=== PATIENT | male | born 1965 | race American Indian/Alaskan Native ===

== ENCOUNTER 2018-08-01 18:49 | Inpatient (IN) | payer OTHER ==
[2018-08-01] MEDS ORDERED: ASPIRIN PO ONE (19:12)
[2018-08-01 21:14] LABS: Basophils % (Auto) 0.3 % (0.0-1.8); Eosinophils # (Auto) 0.2 K/mm3 (0.0-0.4); Eosinophils % (Auto) 1.3 % (0.0-4.3); Hematocrit 41.3 % (35.5-45.6); Hemoglobin 13.3 gm/dl (11.8-15.2); Lymphocytes # (Auto) 0.9 K/mm3 (1.2-5.4); Lymphocytes % (Auto) 7.8 % (13.4-35.0); Mean Corpuscular HGB Conc 32 % (32-34); Mean Corpuscular Volume 83 fl (84-94); Monocytes # (Auto) 1.3 K/mm3 (0.0-0.8); Monocytes % (Auto) 11.1 % (0.0-7.3); Platelet Count 263 K/mm3 (140-440); Red Blood Count 4.99 M/mm3 (3.65-5.03); Red Cell Distribution Width 14.2 % (13.2-15.2)
[2018-08-01 21:32] LABS: BUN/Creatinine Ratio 10; Blood Urea Nitrogen 9 mg/dL (9-20); Calcium 9.1 mg/dL (8.4-10.2); Hemolysis Index 0
[2018-08-02] MEDS ORDERED: ATROVENT IH ONE (02:46)
[2018-08-02] MEDS ORDERED: PROVENTIL IH ONE (02:46)
--- NOTE | 2018-08-02 02:52 | Emergency Department Report ---
HPI - General Chief Complaint: Chest Pain Time Seen by Provider: 08/02/18 02:39 - HPI HPI: Room 6 The patient is a 53-year-old male presenting with chief complaint chest pain and shortness of breath. The patient states this evening he developed left-sided chest pain sharp in nature associated with shortness of breath, nausea/vomiting and diaphoresis. Patient admitted to a cough yesterday productive of yellow sputum but denies a cough currently. The patient states his pain has been constant. Patient states he's never had a stress test or cardiac catheterization Location: [See above] Duration: [See above] Quality: Sharp Severity: Currently 0/10 Modifying factors: [see above] Context: [see above] Mode of transportation: [not driving] ED Past Medical Hx - Past Medical History Additional medical history: denies - Surgical History Past Surgical History?: No Additional Surgical History: BL wrist, pelvis, skull - Family History Family history: no significant - Social History Smoking Status: Current Every Day Smoker (1 pack per day) Substance Use Type: None (denies illicit drug use) - Medications Home Medications: Home Medications Medication Instructions Recorded Confirmed Last Taken Type No Known Home Medications [No 08/02/18 08/02/18 Unknown History Reported Home Medications] ED Review of Systems ROS: Stated complaint: CHEST PAIN Other details as noted in HPI Constitutional: diaphoresis Eyes: denies: eye pain ENT: denies: throat pain Respiratory: cough, shortness of breath Cardiovascular: chest pain Endocrine: no symptoms reported Gastrointestinal: nausea, vomiting Genitourinary: denies: dysuria Musculoskeletal: denies: back pain Neurological: denies: headache Physical Exam - Physical Exam Vital Signs: Vital Signs 08/01/18 08/02/18 19:12 01:58 Temperature 98.2 F 98.5 F Pulse Rate 94 H 77 Respiratory 24 18 Rate Blood Pressure 145/85 112/68 [Left] O2 Sat by Pulse 90 95 Oximetry Physical Exam: GENERAL: The patient is well-developed well-nourished male sleeping on stretcher not appearing to be in acute distress. Patient awakens easily HEENT: Normocephalic. Atraumatic. Extraocular motions are intact. Patient has moist mucous membranes. NECK: Supple. Trachea midline CHEST/LUNGS: Diminished bilaterally with occasional faint end expiratory wheezing on the left. There is no respiratory distress noted. HEART/CARDIOVASCULAR: Regular. There is no tachycardia. There is no gallop rub or murmur. ABDOMEN: Abdomen is soft, nontender. Patient has normal bowel sounds. There is no abdominal distention. SKIN: There is no rash. There is no edema. There is no diaphoresis. NEURO: The patient is awake, alert, and oriented. The patient is cooperative. The patient has normal speech MUSCULOSKELETAL: There is no evidence of acute injury. ED Course Vital Signs 08/01/18 08/02/18 19:12 01:58 Temperature 98.2 F 98.5 F Pulse Rate 94 H 77 Respiratory 24 18 Rate Blood Pressure 145/85 112/68 [Left] O2 Sat by Pulse 90 95 Oximetry ED Medical Decision Making - Lab Data Result diagrams: 08/01/18 20:42 08/01/18 20:42 Laboratory Tests 08/01/18 08/01/18 08/01/18 20:42 20:42 20:42 WBC 11.7 H RBC 4.99 Hgb 13.3 Hct 41.3 MCV 83 L MCH 27 L MCHC 32 RDW 14.2 Plt Count 263 Lymph % (Auto) 7.8 L [place] % (Auto) 11.1 H Eos % (Auto) 1.3 Baso % (Auto) 0.3 Lymph # 0.9 L [place] # 1.3 H Eos # 0.2 Baso # 0.0 Seg Neutrophils % 79.5 H Seg Neutrophils # 9.3 H D-Dimer POC ABG pH POC ABG pCO2 POC ABG pO2 POC ABG HCO3 POC ABG Total CO2 POC ABG O2 Sat POC ABG Base Excess FiO2 Sodium 148 H Potassium 4.1 Chloride 101.1 Carbon Dioxide 29 Anion Gap 22 BUN 9 Creatinine 0.9 Estimated GFR > 60 BUN/Creatinine Ratio 10 Glucose 110 H Calcium 9.1 Troponin T < 0.010 NT-Pro-B Natriuret Pep 95.78 08/02/18 08/02/18 08/02/18 01:00 03:16 04:05 WBC RBC Hgb Hct MCV MCH MCHC RDW Plt Count Lymph % (Auto) [place] % (Auto) Eos % (Auto) Baso % (Auto) Lymph # [place] # Eos # Baso # Seg Neutrophils % Seg Neutrophils # D-Dimer 186.22 POC ABG pH 7.379 POC ABG pCO2 47.1 H POC ABG pO2 50 L POC ABG HCO3 27.8 POC ABG Total CO2 29 POC ABG O2 Sat 84 POC ABG Base Excess 3 FiO2 21 Sodium Potassium Chloride Carbon Dioxide Anion Gap BUN Creatinine Estimated GFR BUN/Creatinine Ratio Glucose Calcium Troponin T < 0.010 NT-Pro-B Natriuret Pep - EKG Data -: EKG Interpreted by Me EKG shows normal: sinus rhythm Rate: normal - EKG Data When compared to previous EKG there are: previous EKG unavailable Interpretation: nonspecific ST-T wave gabino (T-wave inversion in lead aVL) - Radiology Data Radiology results: report reviewed (chest x-ray), image reviewed (chest x-ray) [facility] [address] [place] [address] XRay Report Signed Patient: PETER RILEY MR#: [id number] : 1965 Acct:[id number] Age/Sex: 53 / M ADM Date: 08/01/18 Loc: ED Attending Dr: Ordering Physician: REGIS VASQUEZ MD Date of Service: 08/02/18 Procedure(s): XR chest 1V ap Accession Number(s): [id number] cc: REGIS VASQUEZ MD Fluoro Time In Minutes: PROCEDURE: XR CHEST 1V AP TECHNIQUE: A portable upright view the chest was obtained. HISTORY: chest pain COMPARISONS: None FINDINGS: The heart size and vascularity appear normal. The lungs are clear. Pleural fluid is not seen. The bones and soft tissues do not show any acute changes. IMPRESSION: No acute cardiopulmonary process.. This document is electronically signed by Rojelio Taveras MD., August 02 2018 03:36:29 AM ET Transcribed By: RB Dictated By: ROJELIO TAVERAS MD Electronically Authenticated By: ROJELIO TAVERAS MD Signed Date/Time: 08/02/18337 DD/ 1 TD/TT: 08/02/18331 - Differential Diagnosis pneumonia, ACS, PE, COPD Critical care attestation.: If time is entered above; I have spent that time in minutes in the direct care of this critically ill patient, excluding procedure time. ED Disposition Clinical Impression: Hypoxia, Chest pain Disposition: OP ADMIT IP TO THIS HOSP Is pt being admited?: Yes Does the pt Need Aspirin: Yes Condition: Fair Instructions: Chest Pain (ED) [facility]Primary Care Provider[facility] - 3-5 Days Time of Disposition: 05:11 (hospitalist paged (Dr Liao))
[2018-08-02] MEDS ORDERED: ASPIRIN ONE (02:58)
--- NOTE | 2018-08-02 03:38 | XRay Report ---
PROCEDURE: XR CHEST 1V AP TECHNIQUE: A portable upright view the chest was obtained. HISTORY: chest pain COMPARISONS: None FINDINGS: The heart size and vascularity appear normal. The lungs are clear. Pleural fluid is not seen. The bon es and soft tissues do not show any acute changes. IMPRESSION: No acute cardiopulmonary process.. This document is electronically signed by Cornelio Taveras MD., August 02 2018 03:36:29 AM ET
[2018-08-02] MEDS ORDERED: SOLU-Medrol IV ONE (05:06)
[2018-08-02] MEDS ORDERED: TYLENOL PO PRN (05:45)
[2018-08-02] MEDS ORDERED: ZOFRAN IV PRN (05:45)
[2018-08-02] MEDS ORDERED: SODIUM CHLORIDE FLUSH SYRINGE 10 ML IV PRN (05:45)
[2018-08-02] MEDS ORDERED: MORPHINE IV PRN (05:45)
--- NOTE | 2018-08-02 05:49 | History and Physical Report ---
History of Present Illness Date of examination: 08/02/18 Date of admission: 08/02/2018 Chief complaint: Chest pain History of present illness: Patient is a 53-year-old -[place] male in no known past medical history who presented to the ED on account of 1 week history of left-sided chest pain. He described it as sharp in character, nonradiating and rated 9/10. The pain waxes and wanes. No known aggravating or relieving factors. He has associated diaphoresis, shortness of breath, sore throats, runny nose. He denies palpitations, leg swelling, cough, fever, chills, orthopnea or PND. No headaches, nausea, vomiting, lightheadedness, syncope or loss of consciousness. No abdominal pain, constipation, diarrhea, dysuria or frequency. Past History Past Medical History: No medical history Past Surgical History: Other (pelvic surgery) Social history: smoking (patient has 45 years history of cigarette smoking. He currently smokes 1 pack per day), other (he denies alcohol or illicit drug use) Family history: other (reviewed and noncontributory) Medications and Allergies Allergies Allergy/AdvReac Type Severity Reaction Status Date / Time No Known Allergies Allergy Verified 08/02/18 02:45 Home Medications Medication Instructions Recorded Confirmed Last Taken Type No Known Home Medications [No 08/02/18 08/02/18 Unknown History Reported Home Medications] Review of Systems All systems: negative (except as documented in the HPI, all other systems were reviewed and negative) Exam - Constitutional Vitals: Temp Pulse Resp BP Pulse Ox 98.5 F 73 17 105/70 93 08/02/18 01:58 08/02/18 05:00 08/02/18 05:00 08/02/18 05:00 08/02/18 05:00 General appearance: Present: no acute distress, obese - EENT Eyes: Present: PERRL, EOM intact ENT: hearing intact, clear oral mucosa - Neck Neck: Present: supple, normal ROM - Respiratory Respiratory effort: normal Respiratory: bilateral: CTA, diminished - Cardiovascular Rhythm: regular Heart Sounds: Present: S1 & S2. Absent: rub, click - Extremities Extremities: No edema Peripheral Pulses: within normal limits - Abdominal General gastrointestinal: Present: soft, non-tender, non-distended, normal bowel sounds Male genitourinary: Present: deferred - Integumentary Integumentary: Present: clear, warm, dry - Musculoskeletal Musculoskeletal: gait normal, strength equal bilaterally - Psychiatric Psychiatric: appropriate mood/affect, intact judgment & insight - Neurologic Neurologic: CNII-XII intact, moves all extremities Results - Labs CBC & Chem 7: 08/01/18 20:42 08/01/18 20:42 Labs: Laboratory Last Values WBC 11.7 K/mm3 (4.5-11.0) H 08/01/18 20:42 RBC 4.99 M/mm3 (3.65-5.03) 08/01/18 20:42 Hgb 13.3 gm/dl (11.8-15.2) 08/01/18 20:42 Hct 41.3 % (35.5-45.6) 08/01/18 20:42 MCV 83 fl (84-94) L 08/01/18 20:42 MCH 27 pg (28-32) L 08/01/18 20:42 MCHC 32 % (32-34) 08/01/18 20:42 RDW 14.2 % (13.2-15.2) 08/01/18 20:42 Plt Count 263 K/mm3 (140-440) 08/01/18 20:42 Lymph % (Auto) 7.8 % (13.4-35.0) L 08/01/18 20:42 [place] % (Auto) 11.1 % (0.0-7.3) H 08/01/18 20:42 Eos % (Auto) 1.3 % (0.0-4.3) 08/01/18 20:42 Baso % (Auto) 0.3 % (0.0-1.8) 08/01/18 20:42 Lymph # 0.9 K/mm3 (1.2-5.4) L 08/01/18 20:42 [place] # 1.3 K/mm3 (0.0-0.8) H 08/01/18 20:42 Eos # 0.2 K/mm3 (0.0-0.4) 08/01/18 20:42 Baso # 0.0 K/mm3 (0.0-0.1) 08/01/18 20:42 Seg Neutrophils % 79.5 % (40.0-70.0) H 08/01/18 20:42 Seg Neutrophils # 9.3 K/mm3 (1.8-7.7) H 08/01/18 20:42 D-Dimer 186.22 ng/mlDDU (0-234) 08/02/18 04:05 POC ABG pH 7.379 (7.35-7.45) 08/02/18 03:16 POC ABG pCO2 47.1 (35-45) H 08/02/18 03:16 POC ABG pO2 50 (80-105) L 08/02/18 03:16 POC ABG HCO3 27.8 (22-26 mml/L) 08/02/18 03:16 POC ABG Total CO2 29 (23-27mmol/L) 08/02/18 03:16 POC ABG O2 Sat 84 08/02/18 03:16 POC ABG Base Excess 3 ((-2) - (+3)mmol/L) 08/02/18 03:16 FiO2 21 % 08/02/18 03:16 Sodium 148 mmol/L (137-145) H 08/01/18 20:42 Potassium 4.1 mmol/L (3.6-5.0) 08/01/18 20:42 Chloride 101.1 mmol/L (98-107) 08/01/18 20:42 Carbon Dioxide 29 mmol/L (22-30) 08/01/18 20:42 Anion Gap 22 mmol/L 08/01/18 20:42 BUN 9 mg/dL (9-20) 08/01/18 20:42 Creatinine 0.9 mg/dL (0.8-1.5) 08/01/18 20:42 Estimated GFR > 60 ml/min 08/01/18 20:42 BUN/Creatinine Ratio 10 % 08/01/18 20:42 Glucose 110 mg/dL (75-100) H 08/01/18 20:42 Calcium 9.1 mg/dL (8.4-10.2) 08/01/18 20:42 Troponin T < 0.010 ng/mL (0.00-0.029) 08/02/18 01:00 NT-Pro-B Natriuret Pep 95.78 pg/mL (0-900) 08/01/18 20:42 Assessment and Plan Assessment and plan: Chest pain, rule out ACS -Chest pain pathway -Nuclear stress test and echocardiogram for further evaluation Acute respiratory failure with hypoxia -Probably secondary to undiagnosed COPD due to his history of tobacco abuse -Continue oxygen supplementation as needed and nebulizer breathing treatments -D-dimer negative. SIRS -Probably secondary to noninfectious cause -Urinalysis pending, chest x-ray negative Hypernatremia -probably secondary to volume depletion -On IV half-normal saline, will monitor sodium level Hyperglycemia -Hba1c level pending Tobacco abuse -Patient counseled on cessation -On nicotine patch Obesity with BMI of 37.6 -Lifestyle modification recommended DVT prophylaxis with Lovenox Disposition: For discharge when medically stable Time spent: 38 minutes
[2018-08-02] MEDS ORDERED: HABITROL TD ONE (05:58)
[2018-08-02] MEDS ORDERED: NACL 0.45% 500 ML IV SCH (06:00)
[2018-08-02] MEDS ORDERED: LEXISCAN IV ONE ×2 (08:03→08:12)
[2018-08-02] MEDS ORDERED: LOVENOX SUB-Q SCH (10:00)
[2018-08-02] MEDS ORDERED: SODIUM CHLORIDE FLUSH SYRINGE 10 ML IV SCH (10:00)
[2018-08-02] MEDS: DUONEB *Not for PRN Use IH SCH ×2 (10:22→14:21)
--- NOTE | 2018-08-02 11:51 | Discharge Summary ---
Providers - Providers Date of Admission: 08/02/18 05:16 Attending physician: LO DAVIS MD [facility] Reason for admission: chest pain, COPD Condition: Stable Pertinent studies: Stress test negative for acute ischemia Chest x-ray Echo Hospital course: Patient is a 53-year-old -[place] male in no known past medical history who presented to the ED on account of 1 week history of left-sided chest pain. He described it as sharp in character, nonradiating and rated 9/10. The pain waxes and wanes. No known aggravating or relieving factors. He has associated diaphoresis, shortness of breath, sore throats, runny nose. He denies palpitations, leg swelling, cough, fever, chills, orthopnea or PND. No headaches, nausea, vomiting, lightheadedness, syncope or loss of consciousness. No abdominal pain, constipation, diarrhea, dysuria or frequency. Patient is admitted to the floor and cardiac enzymes are negative, EKG no STEMI, stress test was negative. Discussed his cardiology and said that was grossly normal and official read is not in the chart. Patient has wheezing and given his long time history of smoking I suspect the patient has new onset COPD and started on COPD treatment. Patient was counseled about cessation of smoking. Patient's chest pain subsided. Patient wants to be discharged and I discharged him. Patient was hemodynamically stable at the time of discharge. Patient was discharged with steroids, when necessary albuterol and NSAIDs. Disposition: DC-01 TO HOME OR SELFCARE Time spent for discharge: 32 minutes - Discharge Diagnoses (1) Chest pain Status: Acute (2) Hypoxia Status: Acute (3) COPD (chronic obstructive pulmonary disease) Status: Acute Core Measure Documentation - Palliative Care Palliative Care/ Comfort Measures: Not Applicable - Core Measures Any of the following diagnoses?: none Exam - Physical Exam Narrative exam: Not in cardiopulmonary distress. The patient is obese. Vital signs as documented. Head exam is unremarkable. No scleral icterus . Neck is without jugular venous distension, thyromegaly, or carotid bruits. Lungs scattered wheezing. Cardiac exam reveals regular rate and Rhythm. Abdominal exam reveals normal bowel sounds. Extremities are nonedematous and both femoral and pedal pulses are normal. [employer]VER [employer] MOLD: Alert and oriented 3. No focal weakness. - Constitutional Vitals: Temp Pulse Resp BP Pulse Ox 98.7 F 83 16 122/66 91 08/02/18 08:30 08/02/18 08:30 08/02/18 08:30 08/02/18 09:23 08/02/18 08:30 Plan Activity: no restrictions Weight Bearing Status: Full Weight Bearing Diet: regular Follow up with: DANNA VIVAS MD [Primary Care Provider] - 3-5 Days Prescriptions: Azithromycin 250 mg PO DAILY #6 tablet Ibuprofen 600 mg PO Q6H PRN #15 tablet PRN Reason: Chest Pain Prednisone [predniSONE 10 mg (6-Day Pack, 21 Tabs)] 10 mg PO .TAPER #1 tab.ds.pk ALBUTEROL Inhaler(NF) [VENTOLIN Inhaler(NF)] 1 puff IH Q4H PRN #1 can PRN Reason: Dyspnea
--- NOTE | 2018-08-02 11:54 | Treadmill Report ---
NUCLEAR STRESS TEST DESCRIPTION OF PROCEDURE: The patient is brought to the Cardiology lab and a Lexiscan stress test is performed. The patient tolerated the procedure well. FINDINGS: Post-stress images reveal fairly homogenous distribution of the isotope. Mild reduction of perfusion is noted in the inferior wall with minimal reversibility. This may indicate previous inferior infarction with mild ischemia; however, this could also be artifactual. Calculated left ventricular ejection fraction is 68%. IMPRESSION: 1. Fairly homogeneous distribution of the isotope. Small fixed inferior defect with minimal reversibility of questionable significance. May indicate old inferior myocardial infarction with mild ischemia. 2. Good systolic function with ejection fraction of 68%. 3. The inferior abnormalities could also be artifactual. 4. Suggests clinical correlation. JOB# [id number] [facility]
[2018-08-02 16:46] VITALS: BP 106/60
== END 2018-08-02 17:20 | disposition home or self-care (01) | DRG 189 ==
LOC: ED 18:49 → 4A 08-02 05:16
PROVIDERS: ADMIT Internal Medicine; ATTEND Internal Medicine
PROC: 4A033R1 Measurement of Arterial Saturation, Peripheral, Percutaneous Approach (ICD-10-PCS; principal; 2018-08-02)
DX: J96.01 Acute respiratory failure with hypoxia (principal); R65.10 Systemic inflammatory response syndrome (SIRS) of non-infectious origin without acute organ dysfunction; E87.0 Hyperosmolality and hypernatremia; J44.9 Chronic obstructive pulmonary disease, unspecified; F17.210 Nicotine dependence, cigarettes, uncomplicated; R73.9 Hyperglycemia, unspecified; R07.9 Chest pain, unspecified; E66.9 Obesity, unspecified; Z71.6 Tobacco abuse counseling; Z68.37 Body mass index [BMI] 37.0-37.9, adult
CPT/HCPCS: 36415; 71045; 78452; 80048; 82803; 83036; 83735; 83880; 84484; 85025; 85379; 93005; 93010; 93017; 93306; 94640; G0378; A9502; J1650; J2785; J2930